=== PATIENT | female | born 1955 | race Caucasian/White ===

== ENCOUNTER 2017-11-19 10:00 | Day surgery (SDC) | payer MEDICAID ==
[2017-11-16 15:22] LABS: ALANINE AMINOTRANSFERASE 17 U/L (12-78); ALBUMIN 3.6 g/dL (3.4-5.0); ANION GAP 8 mmol/L (5-15); CALCIUM 8.7 mg/dL (8.5-10.1); CHLORIDE 107 mmol/L (98-107); CREATININE 0.86 mg/dL (0.55-1.02)
[2017-11-16 15:24] LABS: ALKALINE PHOSPHATASE 62 U/L (45-117); BILIRUBIN,TOTAL 1.1 mg/dL (0.2-1.0); TOTAL PROTEIN 7.2 g/dL (6.4-8.2)
[~2017-11-19] VITALS: Ht 160 cm; Wt 116.4 kg
[~2017-11-19 10:00] MED LIST: BIO X PO; LEVO100T5 PO; LOSA50TA7 PO; RANI150T4 PO
[2017-11-19] MEDS ORDERED: LACTATED RINGERS 1,000 ML IV SCH (10:28)
[2017-11-19 11:08] VITALS: BP 161/97
[2017-11-19] MEDS ORDERED: DIPHENHYDRAMINE 50 MG/ML, 1ML ONE (12:52)
[2017-11-19] MEDS ORDERED: ACETAMINOPHEN 650 MG/20.3 ML UDC ONE (12:52)
[2017-11-19] MEDS ORDERED: DIPHENHYDRAMINE 50 MG/ML, 1ML IVPush PRN (13:00)
[2017-11-19] MEDS ORDERED: ONDANSETRON 2MG/ML, 2ML IV PRN (13:00)
[2017-11-19] MEDS ORDERED: PROMETHAZINE 25 MG/ML, 1ML IV PRN (13:00)
[2017-11-19] MEDS ORDERED: LABETALOL 5MG/ML, 20ML IV PRN (13:00)
[2017-11-19] MEDS ORDERED: PROMETHAZINE 12.5 MG SUPP PR PRN (13:00)
[2017-11-19] MEDS ORDERED: hydrALAzine 20 MG/ML, 1ML IV PRN (13:00)
[2017-11-19] MEDS ORDERED: MEPERIDINE/PF 25MG/0.5ML IVPush PRN (13:00)
[2017-11-19] MEDS ORDERED: HYDROcodone/APAP 7.5-325MG/15ML UDC PO PRN (13:00)
[2017-11-19] MEDS ORDERED: FENTANYL PF 100 MCG/2ML IV PRN (13:00)
[2017-11-19] MEDS ORDERED: HYDROmorphone 1 MG/ML, 1ML IV PRN (13:00)
[2017-11-19] MEDS ORDERED: EPHEDRINE 50 MG/ML, 1ML IVPush PRN (13:00)
[2017-11-19] MEDS ORDERED: ACETAMINOPHEN 325 MG TABLET PO PRN (13:00)
[2017-11-19] MEDS ORDERED: OXYcodone 5 MG/5 ML ORAL.SOL UDC PO PRN (13:00)
[2017-11-19] MEDS ORDERED: ONDANSETRON ODT 8 MG PO PRN (13:00)
[2017-11-19] MEDS ORDERED: MIDAZOLAM 1 MG/ML, 2ML IV PRN (13:00)
[2017-11-19] MEDS ORDERED: MORPHINE SULFATE 4 MG/ML, 1ML IVPush PRN (13:00)
[2017-11-19] MEDS ORDERED: ALBUTEROL SULFATE 2.5 MG/3 ML NPPB PRN (13:00)
[2017-11-19] MEDS ORDERED: LORazepam 2 MG/ML, 1ML IVPush PRN (13:00)
[2017-11-19] MEDS ORDERED: FENTANYL PF 100 MCG/2ML ONE (13:11)
[2017-11-19] MEDS ORDERED: HYDROcodone/APAP 7.5-325MG/15ML UDC ONE ×2 (13:19→13:20)
[2017-11-19] MEDS ORDERED: ONDANSETRON 2MG/ML, 2ML ONE (14:04)
[2017-11-19] MEDS ORDERED: PROPOFOL 10 MG/ML, 50ML ONE (14:04)
== END 2017-11-19 15:00 | disposition home or self-care (01) ==
LOC: OUT 10:00
PROVIDERS: ATTEND Internal Medicine Gastroenterology
DX: K52.89 Other specified noninfective gastroenteritis and colitis (principal); K56.699 Other intestinal obstruction unspecified as to partial versus complete obstruction; K57.30 Diverticulosis of large intestine without perforation or abscess without bleeding; K64.4 Residual hemorrhoidal skin tags; E66.9 Obesity, unspecified; Z68.42 Body mass index [BMI] 45.0-49.9, adult; J45.909 Unspecified asthma, uncomplicated; I10 Essential (primary) hypertension; E03.9 Hypothyroidism, unspecified; K21.9 Gastro-esophageal reflux disease without esophagitis; I48.91 Unspecified atrial fibrillation; C65.2 Malignant neoplasm of left renal pelvis; Z88.5 Allergy status to narcotic agent; Z88.8 Allergy status to other drugs, medicaments and biological substances; Z79.899 Other long term (current) drug therapy
CPT/HCPCS: 36415; 45380; 80053; 88305; 93005; J1200; J2405; J2704; J3010; J7120

== ENCOUNTER → 2017-12-10 | Outpatient (CLI) | payer MEDICAID | END | disposition home or self-care (01) | LOC: CVU 10:37 | PROVIDERS: ATTEND Internal Medicine Cardiovascular Disease | DX: I08.3 Combined rheumatic disorders of mitral, aortic and tricuspid valves (principal); I48.91 Unspecified atrial fibrillation | CPT/HCPCS: 93306 ==

== ENCOUNTER 2018-06-17 12:44 | Outpatient (CLI) | payer MEDICAID ==
[~2018-06-17 12:44] MED LIST changes: +LOSA50TA14 PO; -LOSA50TA7 PO
== END 2018-06-17 23:59 | disposition home or self-care (01) ==
LOC: CFH 12:44
PROVIDERS: ATTEND Internal Medicine Cardiovascular Disease
DX: I08.8 Other rheumatic multiple valve diseases (principal); I10 Essential (primary) hypertension; I48.91 Unspecified atrial fibrillation
CPT/HCPCS: 93306

== ENCOUNTER → 2020-02-13 | Outpatient (CLI) | payer MEDICAID | END | disposition home or self-care (01) | LOC: CVU 10:35 | PROVIDERS: ATTEND Physician Assistant Medical | DX: I08.8 Other rheumatic multiple valve diseases (principal); I11.9 Hypertensive heart disease without heart failure; I48.20 Chronic atrial fibrillation, unspecified | CPT/HCPCS: 93306 ==